=== PATIENT | male | born 1945 | race Caucasian/White ===

== ENCOUNTER 2024-07-30 21:50 | Outpatient (REF) | payer MEDICARE, BC, SELFPAY ==
[2024-07-30 22:04] LABS: Calculated LDL 64 mg/dL (<100); Cholesterol 160 mg/dL (<200); HDL Cholesterol 76 mg/dL (40-60); Triglyceride 101 mg/dL (<150)
== END 2024-07-30 21:51 | disposition home or self-care (01) ==
LOC: NCHCN 21:50
PROVIDERS: PCP Internal Medicine; Visit Provider Internal Medicine
DX: E78.5 Hyperlipidemia, unspecified (principal)
CPT/HCPCS: 80061

== ENCOUNTER 2024-12-26 15:03 | Outpatient (REF) | payer MEDICARE, BC, SELFPAY ==
[2024-12-26 21:17] LABS: Abs Immature Grans 0.02 10^3/uL (0.0-0.06); Absolute Basophil Count 0.07 10^3/uL (0.0-0.2); Absolute Eosinophil Count 0.15 10^3/uL (0.0-0.7); Absolute Lymphocyte Count 1.31 10^3/uL (1.2-3.4); Absolute Monocyte Count 0.63 10^3/uL (0.1-0.8); Absolute Neutrophil Count 4.11 10^3/uL (1.2-6.7); Basophils % 1.1 %; Eosinophils % 2.4 %; HCT 44.1 % (40.0-50.0); HGB 14.5 g/dL (13.5-17.5); Immature Grans % 0.3 %; Lymphocytes % 20.8 %; MCH 31.4 pg (27.0-33.0); MCHC 32.9 % (32.0-36.0); MCV 96 fL (80-95); MPV 12.1 fL (8.0-11.0); Neutrophils % 65.4 %; Platelet Count 238 10^3/uL (130-400); RBC 4.62 10^6/uL (4.36-5.78); RDW 12.7 % (11.8-14.1); RDW-SD 45.3 fL; WBC 6.29 10^3/uL (4.4-10.8)
[2024-12-26 21:38] LABS: ALT 50 U/L (16-63); AST 43 U/L (15-37); Alkaline Phosphatase 63 U/L (46-116); Anion Gap 6.6 mmol/L (3-11); BUN 15 mg/dL (7-18); Bilirubin, Total 1.1 mg/dL (0.2-1.0); CO2 30.4 mmol/L (21.0-32.0); CREATININE 0.9 mg/dL (0.70-1.30); Calcium 9.4 mg/dL (8.5-10.1); Chloride 103 mmol/L (98-107); Estimated GFR 87.96 (mL/min/1.73m2); Glucose 93 mg/dL (74-106); Potassium 4.5 mmol/L (3.5-5.1); Sodium 140 mmol/L (136-145); Total Protein 7.2 g/dL (6.4-8.2)
== END 2024-12-26 15:04 | disposition home or self-care (01) ==
LOC: NCHCN 15:03
PROVIDERS: PCP Internal Medicine; Visit Provider Internal Medicine
DX: D49.2 Neoplasm of unspecified behavior of bone, soft tissue, and skin (principal)
CPT/HCPCS: 80053; 85025

== ENCOUNTER 2025-02-04 15:28 | Outpatient (REF) | payer MEDICARE, BC, SELFPAY ==
[2025-02-04 21:18] LABS: ALT 32 U/L (16-63); AST 36 U/L (15-37); Albumin 4.0 g/dL (3.4-5.0); Alkaline Phosphatase 62 U/L (46-116); Bilirubin, Direct 0.2 mg/dL (0.0-0.2); Bilirubin, Total 0.9 mg/dL (0.2-1.0); Total Protein 6.8 g/dL (6.4-8.2)
[2025-02-05 18:53] LABS: Hepatitis C Ab w Rflx HCV PCR Negative (Negative)
== END 2025-02-04 15:29 | disposition home or self-care (01) ==
LOC: NCHCN 15:28
PROVIDERS: PCP Internal Medicine; Visit Provider Internal Medicine
DX: R74.8 Abnormal levels of other serum enzymes (principal)
CPT/HCPCS: 80076; 86803